=== PATIENT | female | born 1990 | race Hispanic/Latino ===

== ENCOUNTER 2016-05-31 18:03 | Emergency (ER) | payer OTHER ==
[~2016-05-31] VITALS: Ht 160 cm; Wt 70.3 kg
--- NOTE | 2016-05-31 20:19 | ED CARDIAC/CP/PALPITATIONS ---
History of Present Illness General Chief Complaint: Chest Pain Stated Complaint: CP Source: patient, old records Exam Limitations: no limitations Vital Signs & Intake/Output Vital Signs & Intake/Output Vital Signs Date Time Temp Pulse Resp B/P Pulse O2 O2 Flow FiO2 Ox Delivery Rate 05/31 2239 97.2 72 16 120/85 96 05/31 1824 97.4 76 18 123/84 99 Room Air ED Intake and Output 06/01 0000 05/31 1200 Intake Total 500 Output Total Balance 500 Intake, IV 500 Patient 155 lb Weight Allergies Coded Allergies: NO KNOWN ALLERGIES (11/18/10) Triage Note: C/O CHEST PAIN RADIATING TO LEFT SHOULDER AND BACK X 5 DAYS. DENIES SOB, DIZZINESS. STATES SHE STARTED 3 NEW MEDICATIONS 6 DAYS AGO FOR POLYCYSTIC OVARY SYNDROME. (LEVOTHYROXINE, METFORMIN AND PROVERA). EKG DONE ON ARRIVAL. Triage Nurses Notes Reviewed? yes Onset: Abrupt Duration: day(s): (5), constant Timing: recent history Quality/Severity: moderate, severe, aching Location: central Radiation: no radiation Activities at Onset: none Prior Chest Pain/Card Workup: no prior chest pain Nitro Today/Relief: no nitro taken today Aspirin Today: no aspirin today Associated Symptoms: dyspnea : No Patient currently breastfeeds: No HPI: This is a 25-year-old female with history of polycystic ovarian syndrome presents emergency room for evaluation complaining of left-sided chest pain nonradiating associated with exertional shortness of breath for the past 5 days. The patient states that 6 days ago she began taking levothyroxin metformin and Provera and looked up her symptoms online and came to the ER. She denies any cough fever chills no hemoptysis no leg swelling or recent immobility. No family history of sudden cardiac disease or PE DVT. She does not smoke. She has not taken anything for her symptoms. The symptoms are not worse with laying flat or sitting upright. There are no other modifying factors or associated symptoms otherwise. Pain is aching constant 5 out of 10 (JASEN HUI) Past History Travel History Traveled to [place] past 21 day No Medical History Any Pertinent Medical History? see below for history Endocrine: PCOS Surgical History Surgical History: non-contributory Psychosocial History What is your primary language [place] Tobacco Use: Never used ETOH Use: denies use Family History Hx Contributory? No (JASEN HUI) Review of Systems Review of Systems Constitutional: Reports: see HPI. All Other Systems: Reviewed and Negative Comments Review of systems: See HPI, All other systems negative. Constitutional, no chills no fever, no malaise HEENT: No visual changes no sore throat no congestion Cardiovascular: chest pain , no palpitation Skin, no rashes, no change in skin Respiratory: No dyspnea no cough no sputum GI: No nausea no vomiting, no diarrhea : No dysuria Muscle skeletal: No joint pain, no back pain, no neck pain, Neurologic: No numbness no headache Psych: No stress Heme/endocrine: No bruising no bleeding Immunology: No lymphadenopathy (JASEN HUI) Physical Exam Physical Exam General Appearance: well developed/nourished, alert, awake Cardiovascular: regular rate/rhythm Comments: Well-developed well-nourished person in no acute distress HEENT: Normal EENT exam; PERRL, EOMI, HEAD is atraumatic. moist mucous membranes. Neck: Supple, normal range of motion Back: Nontender, no CVA tenderness. Full range of motion Cardiovascular: Regular rate and rhythms no murmurs rubs Respiratory: Chest nontender.There were no bony deformities, no asymmetry. No respiratory distress. Patient speaking in full complete sentences. Breath sounds clear to auscultation bilaterally: NO W/R/R Abdomen: Soft, nontender nondistended, no appreciable organomegaly. Normal bowel sounds. No rebound/guarding, Extremity: No edema, full range of motion of extremities Neuro: Alert oriented x3, motor sensory normal, There were no obvious focal neurologic abnormalities. Skin: No appreciable rash on exposed skin, skin is warm and dry. Psych: Mood and affect is normal, memory and judgment is normal. Core Measures ACS in differential dx? Yes Severe Sepsis Present: No Septic Shock Present: No All Positive = PERC Ruled Out: Positive: age < 50 years, heart rate < 100 bpm, O2 sat > 94%, no hemoptysis, no prior DVT or PE, no unilateral leg swellin, no surgery/trauma w/in 4w. Negative : no hormone use. (JASEN HUI) Progress Differential Diagnosis: AMI, cholecystitis, musculoskeletal pain, myocarditis, pancreatitis, pericarditis, pneumonia, pneumothorax, pulmonary embolism, PVCs/ PACs, unstable angina Plan of Care: Orders Procedure Date/time Status TROPONIN LEVEL 05/31 2017 Complete HUMAN BETA HCG SCREEN 05/31 2017 Complete D-DIMER 05/31 2017 Complete COMPREHENSIVE METABOLIC PANEL 05/31 2017 Complete CBC WITHOUT DIFFERENTIAL 05/31 2017 Complete EKG 05/31 1804 Active Laboratory Tests 05/31/16 2153: Anion Gap 11, Estimated GFR > 60, BUN/Creatinine Ratio 13.3, Glucose 98, Calcium 9.4, Total Bilirubin 0.4, AST 24, ALT 32, Alkaline Phosphatase 72, Troponin I < 0.01, Total Protein 6.6, Albumin 4.1, Globulin 2.5, Albumin/Globulin Ratio 1.6, Total Beta HCG NEGATIVE 05/31/162115: D-Dimer < 200, CBC w Diff NO MAN DIFF REQ, RBC 5.38, MCV 83.9, MCH 27.5, RDW 13.3, MPV 7.8, Gran % 65.0, Lymphocytes % 27.3, Monocytes % 5.8, Eosinophils % 1.5, Basophils % 0.4, Absolute Granulocytes 10.0 H, Absolute Lymphocytes 4.2 H , Absolute Monocytes 0.9 H, Absolute Eosinophils 0.2, Absolute Basophils 0.1, PUBS MCHC 32.8 L Labs ordered old records reviewed patient is declining anything for pain offered lungs are clear to auscultation pain is not reproducible chest wall, case was discussed with Dr. Patel On repeat evaluation patient is resting comfortably appears in no apparent distress, discussed with her her x-ray findings and labs to date Discussed with the patient her troponin negative D dimer and other labs inclduing slightly elevated wbc, need for close follow-up with her primary care physician this week. Advise supportive care Tylenol Motrin, return to emergency room anytime sooner for symptoms worsened patient feels better stating that she feels as though the normal saline has improved her symptoms they feel comfortable with discharge plan (SENDY PINA,JASEN) Diagnostic Imaging: Viewed by Me: Radiology Read. Discussed w/RAD: Radiology Read. Radiology Impression: PATIENT: KACEY CASTANEDA PRESENT AGE: 25 PATIENT ACCOUNT NO: [id number] : 91 LOCATION: [facility] ORDERING PHYSICIAN: JASEN PINA SERVICE DATE: 05/31/16 EXAM TYPE: RAD - XRY-CHEST XRAY, PA AND LATERAL EXAMINATION: XR CHEST CLINICAL INFORMATION: Chest pain. Dyspnea. COMPARISON: None TECHNIQUE: 2 views of the chest were obtained. FINDINGS: Heart size is normal. The cardiac and mediastinal contours are normal. No acute change of chest. No pulmonary vascular congestion. The lungs are clear. No pleural effusion. IMPRESSION: Normal chest. Heart size is normal. DICTATED BY: JONATHAN MONCADA MD DATE/TIME DICTATED:05/31/162135 CLOTH MERCER[employer]ER BACK TENDER:JOSE DATE/TIME TRANSCRIBED:05/31/162135 CONFIDENTIAL, DO NOT COPY WITHOUT APPROPRIATE AUTHORIZATION. <Electronically signed in Other Vendor System> SIGNED BY: JONATHAN MONCADA MD 05/31/162140 Initial ED EKG: normal axis, normal intervals, normal p-waves, normal QRS complex, normal sinus rhythm, NSR Rhythm Strip: normal sinus rhythm (JASEN HUI) Departure Departure Time of Disposition: 2241 Disposition: HOME OR SELF CARE Condition: Stable Clinical Impression Primary Impression: Atypical chest pain Secondary Impressions: Leukocytosis Referrals: JASEN BLAKE MD (PCP/Family) Additional Instructions: Follow-up with your primary care physician this week. Tylenol Motrin as needed for pain, return to emergency room anytime sooner with any concerns Departure Forms: Customer Survey General Discharge Information (JASEN HUI) PA/CONSTRUCTION PIT WORKER Co-Sign Statement Statement: ED Attending supervision documentation- [] I saw and evaluated the patient. I have also reviewed all the pertinent lab results and diagnostic results. I agree with the findings and the plan of care as documented in the PA's/CONSTRUCTION PIT WORKER's documentation. [X] I have reviewed the ED Record and agree with the PA's/CONSTRUCTION PIT WORKER's documentation. [] Additions or exceptions (if any) to the PAs/CONSTRUCTION PIT WORKER's note and plan are summarized below: [] (DAVID RAMOS,STACIE) Critical Care Note Critical Care Note Critical Care Time: non-applicable (JASEN HUI)
[2016-05-31 21:32] LABS: ABSOLUTE BASOPHIL COUNT 0.1 /CUMM (0.0-0.2); ABSOLUTE EOSINOPHIL COUNT 0.2 /CUMM (0.0-0.7); ABSOLUTE LYMPH COUNT 4.2 /CUMM (1.2-3.4); ABSOLUTE MONOCYTE COUNT 0.9 /CUMM (0.10-0.60); BASOPHIL % 0.4 % (0.0-2.0); EOSINOPHIL % 1.5 % (0-5); HEMATOCRIT 45.1 % (37-47); MEAN CORPUSCULAR HGB 27.5 PG (27.0-31.0); MEAN CORPUSCULAR HGB CONC 32.8 G/DL (33.0-37.0); MEAN CORPUSCULAR VOLUME 83.9 FL (81.0-99.0); MEAN PLATELET VOLUME 7.8 FL (7.4-10.4); PLATELET COUNT 399 /CUMM (130-400); RBC DISTRIBUTION WIDTH 13.3 % (11.5-14.5); RED BLOOD CELL CT 5.38 /CUMM (4.20-5.40); WHITE BLOOD CELL COUNT 15.3 /CUMM (4.8-10.8)
--- NOTE | 2016-05-31 21:41 | RADIOLOGY REPORT ---
EXAMINATION: XR CHEST CLINICAL INFORMATION: Chest pain. Dyspnea. COMPARISON: None TECHNIQUE: 2 views of the chest were obtained. FINDINGS: Heart size is normal. The cardiac and mediastinal contours are normal. No acute change of chest. No pulmonary vascular congestion. The lungs are clear. No pleural effusion. IMPRESSION: Normal chest. Heart size is normal.
[2016-05-31 22:39] VITALS: BP 120/85
== END 2016-05-31 23:00 ==
LOC: ERH 18:03
PROVIDERS: Physician Assistant Medical
DX: R07.89 Other chest pain (principal); D72.829 Elevated white blood cell count, unspecified
CPT/HCPCS: 93005; 93010